=== PATIENT | male | born 1940 | race Caucasian/White ===

== ENCOUNTER 2022-08-05 10:01 | Emergency (ER) | payer OTHER, BC ==
[~2022-08-05] VITALS: Ht 180.3 cm; Wt 81.2 kg
== END 2022-08-05 10:47 | disposition home or self-care (01) ==
LOC: ER 10:01
DX: U07.1 COVID-19 (principal); Z88.2 Allergy status to sulfonamides

== ENCOUNTER 2022-08-07 16:11 | Emergency (ER) | payer OTHER, BC ==
[~2022-08-07] VITALS: Ht 180.3 cm; Wt 81.6 kg
== END 2022-08-07 18:35 | disposition home or self-care (01) ==
LOC: ER 16:11 → EDBD 16:17 → ER 18:35
DX: R05.9 Cough, unspecified (principal); R53.81 Other malaise; Z88.2 Allergy status to sulfonamides

== ENCOUNTER 2022-10-15 08:21 | Emergency (ER) | payer OTHER, BC ==
[~2022-10-15] VITALS: Ht 157.5 cm; Wt 79.8 kg
== END 2022-10-15 12:06 | disposition home or self-care (01) ==
LOC: ER 08:21
PROVIDERS: General Practice
DX: R10.32 Left lower quadrant pain (principal); K59.00 Constipation, unspecified; Z88.2 Allergy status to sulfonamides

== ENCOUNTER 2023-03-19 13:21 | Outpatient (CLI) | payer OTHER, BC | END 2023-03-19 13:52 | disposition home or self-care (01) | LOC: TOM 13:21 | PROVIDERS: ATTEND Otolaryngology Otology & Neurotology | DX: J34.2 Deviated nasal septum (principal) ==

== ENCOUNTER → 2023-04-30 15:15 | Outpatient (CLI) | payer OTHER, BC ==
[2023-04-30 15:32] LABS: CREATININE SERUM 1.47 mg/dL (0.70-1.30)
== END | disposition home or self-care (01) ==
LOC: LAB 15:15
PROVIDERS: ATTEND Radiology Diagnostic Radiology
DX: R10.9 Unspecified abdominal pain (principal); Z85.79 Personal history of other malignant neoplasms of lymphoid, hematopoietic and related tissues

== ENCOUNTER 2023-05-01 09:45 | Outpatient (CLI) | payer OTHER, BC | END 2023-05-01 10:01 | disposition home or self-care (01) | LOC: TOM 09:45 | PROVIDERS: ATTEND Internal Medicine Gastroenterology | DX: R10.9 Unspecified abdominal pain (principal); K59.00 Constipation, unspecified; Z85.79 Personal history of other malignant neoplasms of lymphoid, hematopoietic and related tissues | CPT/HCPCS: 74177; Q9965 ==

== ENCOUNTER 2023-05-07 13:47 | Emergency (ER) | payer OTHER, BC ==
[~2023-05-07] VITALS: Ht 180.3 cm; Wt 68.0 kg
[2023-05-07] MEDS ORDERED: 0.9 % SODIUM CHLORIDE 500 ML IV SCH (16:30)
[2023-05-07] MEDS ORDERED: LACTOBACILLUS ACIDOPHILUS 1 CAP CAP PO ONE (16:30)
[2023-05-07] MEDS ORDERED: DICYCLOMINE HCL 10 MG CAPSULE PO ONE (16:30)
[2023-05-07] MEDS ORDERED: FAMOTIDINE/PF 20 MG/2 ML VIAL IV ONE (16:30)
[2023-05-07 16:51] LABS: HEMATOCRIT 43.2 % (39.0-48.0); HEMOGLOBIN 14.5 g/dL (13-16.00); MEAN CELL VOLUME 90.1 fL (80.0-100.00); MEAN CORPUSCULAR HEMOGLOBIN 30.3 pg (27.00-32.0); MEAN CORPUSCULAR HGB CONC 33.6 g/dl (32.0-36.0); PLATELET COUNT 157 K/uL (150-450); RED BLOOD COUNT 4.79 M/uL (4.00-6.00); RED CELL DISTRIBUTION WIDTH 14.5 % (11.5-14.5)
[2023-05-07 17:07] LABS: CALCIUM 9.5 mg/dL (8.5-10.1); CREATININE SERUM 1.39 mg/dL (0.70-1.30); GFR 48.56; POTASSIUM 4.3 mEq/L (3.5-5.1)
[2023-05-07 17:38] LABS: PH,URINE 5.5 (5.0-8.0); URINE APPEARANCE Clear; URINE BACTERIA 26.4 uL (0.0-1933); URINE BILIRRUBIN Negative (NEGATIVE); URINE BLOOD Trace; URINE COLOR Yellow; URINE EPITHELIAL CELLS 1.5 uL (0.0-38.8); URINE GLUCOSE Negative (NEGATIVE); URINE LEUKOCYTE Negative; URINE NITRATE Negative; URINE PROTEIN Negative (NEGATIVE); URINE RBC 4.4 uL (0.0-20.8); URINE UROBILINOGEN 0.2 E.U./dl
[2023-05-07 17:41] LABS: URINE WBC 0.6 uL (0.0-23.2)
[2023-05-07] MEDS ORDERED: METRONIDAZOLE500 MG PO (17:57)
[2023-05-07] MEDS ORDERED: CIPRO500 MG PO (17:57)
[2023-05-07] MEDS ORDERED: INTESTINEX680 M1 PO (17:57)
== END 2023-05-07 18:02 | disposition home or self-care (01) ==
LOC: ER 13:47
PROVIDERS: General Practice
DX: K52.9 Noninfective gastroenteritis and colitis, unspecified (principal); Z88.2 Allergy status to sulfonamides; Z85.89 Personal history of malignant neoplasm of other organs and systems; I10 Essential (primary) hypertension
CPT/HCPCS: 36415; 96365; 99283; J3490

== ENCOUNTER 2023-05-11 15:57 | Outpatient (CLI) | payer OTHER, BC ==
[~2023-05-11 15:57] MED LIST: CIPRO500 MG PO; INTESTINEX680 M1 PO; METRONIDAZOLE500 MG PO
== END 2023-05-11 16:03 | disposition home or self-care (01) ==
LOC: LAB 15:57
PROVIDERS: ATTEND Internal Medicine Gastroenterology
DX: K52.9 Noninfective gastroenteritis and colitis, unspecified (principal); K55.9 Vascular disorder of intestine, unspecified; K51.90 Ulcerative colitis, unspecified, without complications

== ENCOUNTER 2023-08-06 09:14 | Outpatient (CLI) | payer OTHER, BC ==
[2023-08-06 10:21] LABS: URINE APPEARANCE Clear; URINE BILIRRUBIN Negative (NEGATIVE); URINE BLOOD Negative; URINE COLOR Yellow; URINE GLUCOSE Negative (NEGATIVE); URINE LEUKOCYTE Trace; URINE NITRATE Negative; URINE PROTEIN Negative (NEGATIVE); URINE UROBILINOGEN 0.2 E.U./dl
[2023-08-06 10:24] LABS: URINE BACTERIA 16.3 uL (0.0-1933); URINE EPITHELIAL CELLS 3.6 uL (0.0-38.8); URINE RBC 5.4 uL (0.0-20.8); URINE WBC 6.4 uL (0.0-23.2)
[2023-08-06 10:41] LABS: HEMATOCRIT 39.9 % (39.0-48.0); HEMOGLOBIN 13.8 g/dL (13-16.00); MEAN CELL VOLUME 89.2 fL (80.0-100.00); MEAN CORPUSCULAR HEMOGLOBIN 30.8 pg (27.00-32.0); MEAN CORPUSCULAR HGB CONC 34.6 g/dl (32.0-36.0); PLATELET COUNT 148 K/uL (150-450); RED BLOOD COUNT 4.48 M/uL (4.00-6.00)
[2023-08-06 11:03] LABS: PARTIAL THROMBOPLASTIN TIME 32.6 SECONDS (22.0-34.0); PROTHROMBIN TIME 10.5 SECONDS (9.0-11.5)
[2023-08-06 11:23] LABS: ALBUMIN 3.8 gm/dL (3.4-5.0); BILIRUBIN TOTAL 0.88 mg/dL (0.3-1.2); BILIRUBIN,CONJUGATED 0.22 mg/dL (0.0-0.2); BILIRUBIN,UNCONJUGATED 0.66 mg/dL (0.0-0.6); CALCIUM 9.4 mg/dL (8.5-10.1); CHOL HDL RATIO 2.7 (0-5.0); CREATININE SERUM 1.39 mg/dL (0.70-1.30); GFR 48.56; GLOBULINA 2.6 G/DL (2.4-3.5); POTASSIUM 4.21 mEq/L (3.5-5.1); PROSTATIC SPECIFIC ANTIGEN 0.724 NG/ML (0.010-4.00); T4 FREE 1.27 NG/ML (0.76-1.46); TOTAL PROTEIN 6.4 gm/dL (6.4-8.2); TSH 1.51 uIU/mL (0.358-3.74)
== END 2023-08-06 09:27 | disposition home or self-care (01) ==
LOC: LAB 09:14
PROVIDERS: ATTEND Specialist
DX: E03.9 Hypothyroidism, unspecified (principal); N39.9 Disorder of urinary system, unspecified; D40.0 Neoplasm of uncertain behavior of prostate; E78.2 Mixed hyperlipidemia; E11.65 Type 2 diabetes mellitus with hyperglycemia; D64.9 Anemia, unspecified; D68.8 Other specified coagulation defects; K75.81 Nonalcoholic steatohepatitis (NASH); N39.0 Urinary tract infection, site not specified; E11.21 Type 2 diabetes mellitus with diabetic nephropathy; J45.998 Other asthma

== ENCOUNTER 2024-11-08 13:25 | Emergency (ER) | payer OTHER, BC ==
[~2024-11-08] VITALS: Ht 175.3 cm; Wt 74.8 kg
== END 2024-11-08 17:56 | disposition home or self-care (01) ==
LOC: ER 13:25
DX: T16.2XXA Foreign body in left ear, initial encounter (principal); W44.8XXA Other foreign body entering into or through a natural orifice, initial encounter; Y93.89 Activity, other specified; Y92.89 Other specified places as the place of occurrence of the external cause; Z88.2 Allergy status to sulfonamides

== ENCOUNTER → 2024-11-12 | Emergency (ER) | payer OTHER, BC ==
[~2024-11-12] VITALS: Ht 177.8 cm; Wt 74.8 kg
[~2024-11-12] MED LIST changes: +FAMOtidine 10 MG/ML (4ML VIAL) IV ONE; +FAMOtidine 200mg/20ml VIAL ONE; +KETOROLAC TROMETHAMINE 30 MG VIAL IM ONE; +KETOROLAC TROMETHAMINE 30 MG VIAL ONE; +ONDANSETRON HCL 2 MG/ML VIAL IV ONE; +ONDANSETRON HCL 2 MG/ML VIAL ONE
[2024-11-12 17:14] LABS: BASO % 0.5 % (0.1-1.2); EOS # 0.16 (0.04-0.54); EOS % 2.4 % (0.7-7.0); LYMPH # 0.97 (1.18-3.74); LYMPH % 14.8 % (19.3-53.1); MEAN PLATELET VOLUME 11.50 fl (9.4-12.4); MONO # 0.51 (0.24-0.82); MONO % 7.8 % (4.7-12.5); NEUT # 4.86 (1.56-6.13); NEUT % 74.0 % (34.0-71.1); RED CELL DISTRIBUTION WIDTH 13.2 % (11.6-14.4)
[2024-11-12 18:14] LABS: URINE APPEARANCE Clear; URINE BILIRRUBIN Negative (NEGATIVE); URINE BLOOD Negative; URINE COLOR Yellow; URINE GLUCOSE Negative (NEGATIVE); URINE KETONE Negative (NEGATIVE); URINE LEUKOCYTE Negative; URINE NITRATE Negative; URINE PROTEIN Negative (NEGATIVE); URINE UROBILINOGEN 0.2 E.U./dl
[2024-11-12 18:17] LABS: URINE BACTERIA 4.7 uL (0.0-1933); URINE EPITHELIAL CELLS 1.8 uL (0.0-38.8); URINE WBC 2.2 uL (0.0-23.2)
[2024-11-12 18:28] LABS: URINE CAST 0.14 uL (0.0-1.40); URINE RBC 0.8 uL (0.0-20.8)
[2024-11-12 18:40] LABS: ALT/SGPT 16.0 U/L (12-78); AST/SGOT 14.0 U/L (15-37); BILIRUBIN TOTAL 0.87 mg/dL (0.3-1.2); BUN CREA RATIO 16.0 (7.0-25.0); CREATININE SERUM 1.18 mg/dL (0.70-1.30); GFR 58.53; GLOBULINA 3.0 G/DL (2.4-3.5); GLUCOSE FASTING 105.0 mg/dL (65-100); OSMOLALITY SERUM 286.0 MOSM/KG (275-295)
== END | disposition home or self-care (01) ==
LOC: ER 13:20
PROVIDERS: Student in an Organized Health Care Education/Training Program
DX: R10.84 Generalized abdominal pain (principal); K57.30 Diverticulosis of large intestine without perforation or abscess without bleeding; K80.20 Calculus of gallbladder without cholecystitis without obstruction; N21.0 Calculus in bladder; Z88.2 Allergy status to sulfonamides
CPT/HCPCS: 36415; 74176; 96365; 96372; 99283; J1885; J2405; J3490

== ENCOUNTER → 2024-12-19 | Emergency (ER) | payer OTHER, BC ==
[~2024-12-19] VITALS: Ht 177.8 cm; Wt 76.2 kg
[~2024-12-19] MED LIST changes: +CEFTRIAXONE SODIUM 1,000 MG VIAL IM ONE; +CEFTRIAXONE SODIUM 1,000 MG VIAL ONE; -FAMOtidine 10 MG/ML (4ML VIAL) IV ONE; -FAMOtidine 200mg/20ml VIAL ONE; -KETOROLAC TROMETHAMINE 30 MG VIAL IM ONE; -KETOROLAC TROMETHAMINE 30 MG VIAL ONE; -ONDANSETRON HCL 2 MG/ML VIAL IV ONE; -ONDANSETRON HCL 2 MG/ML VIAL ONE; +TAMS0.4C PO; +TAMSULOSIN HCL 0.4 MG CAP PO ONE
[2024-12-19 13:33] VITALS: BP 107/51; O2SAT 99
[2024-12-19 15:16] LABS: BASO % 0.5 % (0.1-1.2); EOS # 0.10 (0.04-0.54); EOS % 1.6 % (0.7-7.0); LYMPH # 0.94 (1.18-3.74); LYMPH % 15.1 % (19.3-53.1); MEAN PLATELET VOLUME 11.00 fl (9.4-12.4); MONO # 0.40 (0.24-0.82); MONO % 6.4 % (4.7-12.5); NEUT # 4.73 (1.56-6.13); NEUT % 76.1 % (34.0-71.1); RED CELL DISTRIBUTION WIDTH 13.0 % (11.6-14.4)
[2024-12-19 16:56] LABS: URINE APPEARANCE Clear; URINE BILIRRUBIN Negative (NEGATIVE); URINE BLOOD Negative; URINE COLOR Dark Yellow; URINE GLUCOSE Negative (NEGATIVE); URINE KETONE Trace (NEGATIVE); URINE LEUKOCYTE Negative; URINE NITRATE Negative; URINE PROTEIN Negative (NEGATIVE); URINE UROBILINOGEN 0.2 E.U./dl
[2024-12-19 16:59] LABS: URINE BACTERIA 32.3 uL (0.0-1933); URINE EPITHELIAL CELLS 6.2 uL (0.0-38.8); URINE RBC 3.5 uL (0.0-20.8); URINE WBC 4.6 uL (0.0-23.2)
[2024-12-19 17:04] LABS: URINE CAST 0.58 uL (0.0-1.40)
[2024-12-19 18:15] LABS: ALT/SGPT 22.0 U/L (12-78); AST/SGOT 19.0 U/L (15-37); BILIRUBIN TOTAL 0.45 mg/dL (0.3-1.2); BUN CREA RATIO 16.0 (7.0-25.0); CREATININE SERUM 1.53 mg/dL (0.70-1.30); GFR 43.37; GLOBULINA 3.6 G/DL (2.4-3.5); GLUCOSE FASTING 95.0 mg/dL (65-100); OSMOLALITY SERUM 282.0 MOSM/KG (275-295)
== END | disposition home or self-care (01) ==
LOC: ER 12:49
PROVIDERS: General Practice
DX: Z88.2 Allergy status to sulfonamides (principal); N39.498 Other specified urinary incontinence; N39.0 Urinary tract infection, site not specified